=== PATIENT | female | born 1975 | race African-American/Black ===

== ENCOUNTER 2019-01-24 15:46 | Emergency (ER) | payer OTHER ==
[~2019-01-24] VITALS: Ht 165.1 cm; Wt 118.0 kg
[2019-01-24] MEDS ORDERED: IBUPROFEN 800MG TABLET PO ONE (18:30)
[2019-01-24 20:02] VITALS: BP 137/75
== END 2019-01-24 20:09 | disposition home or self-care (01) ==
LOC: ER 15:46
DX: G89.29 Other chronic pain (principal); M25.562 Pain in left knee; Z98.890 Other specified postprocedural states
CPT/HCPCS: 73562; 81025; 99283